=== PATIENT | female | born 1995 | race Caucasian/White ===

== ENCOUNTER 2021-12-28 07:09 | Outpatient (RCR) | payer BC, SELFPAY ==
[2021-12-28 08:50] LABS: Basophils Absolute Auto 0.1 K/mm3 (0.0-0.1); Basophils Percent Auto 0.4 % (0.2-1.2); Eosinophils Absolute Auto 0.2 K/mm3 (0-0.3); Hematocrit 35.4 % (37.0-47.0); Hemoglobin 11.6 g/dL (12.0-15.0); Immature Granulocyte Absolute 0.24 K/mm3 (0.00-0.031); Immature Granulocyte Percent A 1.5 % (0-0.5); Lymphocytes Absolute Auto 1.93 K/mm3 (0.9-3.2); Lymphocytes Percent Auto 12.2 % (18.3-44.2); Mean Corpuscular HGB Conc 32.8 g/dl (32-36); Mean Corpuscular Hemoglobin 30.6 pg (26-34); Mean Corpuscular Volume 93.4 fl (80-100); Mean Platelet Volume 10.1 fl (7.4-10.4); Monocytes Absolute Auto 0.9 K/mm3 (0.1-0.6); Monocytes Percent Auto 5.4 % (2.6-8.5); Neutrophils Absolute Auto 12.6 K/mm3 (1.3-6.7); Neutrophils Percent Auto 79.5 % (45.5-73.1); Platelet Count Result 172 k/mm3 (150-375); Red Blood Count 3.79 M/mm3 (4.2-5.4); Red Cell Distribution Width 13.2 % (11.5-14.5); White Blood Count 15.9 K/mm3 (4.5-10.0)
[2021-12-28 09:06] LABS: Glucose 1 Hour PP 50gm Dose 116 mg/dL
[2021-12-31] MEDS: RHO(D) IMMUNE GLOBULIN 300 MCG/2 ML SYRINGE IM (12:01)
== END 2022-03-28 23:59 | disposition home or self-care (01) ==
LOC: ANHLAB 07:09
PROVIDERS: Visit Provider Obstetrics & Gynecology
DX: O09.92 Supervision of high risk pregnancy, unspecified, second trimester (principal); Z29.13 Encounter for prophylactic Rho(D) immune globulin; O36.0120 Maternal care for anti-D [Rh] antibodies, second trimester, not applicable or unspecified; Z3A.00 Weeks of gestation of pregnancy not specified
CPT/HCPCS: 36415; 82947; 85025; 85461; 90384; 96372; J2790

== ENCOUNTER 2021-12-31 11:46 | Outpatient (CLI) | payer BC, SELFPAY ==
[2021-12-31] MEDS: TETANUS,DIPHTHERIA,AC PERTUSSIS ADULT (0.5 ML) BOOSTRIX IM (12:08)
== END 2021-12-31 11:47 | disposition home or self-care (01) ==
PROVIDERS: Visit Provider Obstetrics & Gynecology
DX: Z23 Encounter for immunization (principal)
CPT/HCPCS: 90471; 90715

== ENCOUNTER 2023-06-14 13:02 | Outpatient (CLI) | payer BC, SELFPAY ==
--- NOTE | ~2023-06-14 | US_ITS ---
EXAMINATION: US OB <=14 wk fetus w TV DATE: 06/14/2023 14:03 INDICATION: Indeterminate with amenorrhea and positive test. TECHNIQUE: Real-time pelvic ultrasound utilizing both a transvaginal and transabdominal probe was pe rformed. The interpreting radiologist was not present for the study. COMPARISON: None. FINDINGS: The uterus measures 10.5 x 5.5 x 7.3 cm. There is an intrauterine gestational sac. A yolk sac and fe mukesh pole are identified. The crown rump length measures 1.6 cm, which correlates with an estimated ge stational age of 8 weeks and 6 days. heart motion is identified measuring 153 beats per minute (bpm) by M-mode Doppler. There is a small amount of anechoic fluid along a portion of the gestational sac measuring 1.3 x 0.6 x 0.4 cm at the left side of the fundus and 1.6 x 1.4 x 0.6 cm extending cau dally into the lower uterine segment. On cine imaging these appear to be communicating and located wi thin the endometrial canal rather than representing subchorionic hematomas. Also on the cine images t he gestational sac is positioned eccentrically at the right side of the fundus with thinning of the e ndo-myometrium (MELITA) from the serosal surface of the uterus to the peripheral margin of the gestation al sac which posteriorly on the transverse cine images measures 2-3 mm which is concerning for an int erstitial ectopic . Cervical length measures 4.7 cm which is normal. The right ovary measures 3.5 x 2.4 x 3.0 cm. 3.1 x 1.4 cm thick-walled centrally anechoic corpus lute um cyst in the right ovary. The left ovary measures 2.8 x 1.1 x 1.9 cm. There is minimal amount of an echoic free fluid in the cul-de-sac. IMPRESSION: 1. Single living fetus with heart rate of 153 bpm. 2. Gestational age by ultrasound of 8 weeks 0 day(s) +/- 5 day(s) with ultrasound estimated date of delivery (MERVIN) of 01/24/2024. 3. Eccentric position of the gestational sac at the right side of the fundus with decreased MELITA dista nce of 2-3 mm raising concern for an interstitial ectopic . Dr. Mack discussed these fin dings with Dr. Underwood the covering physician for Dr. Jones at 4:45 PM. Reviewed, dictated and finalized at location A. [facility] IMPRESSION: 1. Single living fetus with heart rate of 153 bpm. 2. Gestational age by ultrasound of 8 weeks 0 day(s) +/- 5 day(s) with ultraso und estimated date of delivery (MERVIN) of 01/24/2024. 3. Eccentric position of the gestational sac at the right side of the fundus wi th decreased MELITA distance of 2-3 mm raising concern for an interstitial ectopic . Dr. Mack discussed these findings with Dr. Underwood the covering physician for Dr. Jones at 4:45 PM.
== END 2023-06-14 13:03 | disposition home or self-care (01) ==
PROVIDERS: PCP Family Medicine Sports Medicine; Visit Provider Obstetrics & Gynecology
DX: N91.2 Amenorrhea, unspecified (principal)
CPT/HCPCS: 76801; 76817

== ENCOUNTER 2023-09-29 10:11 | Outpatient (CLI) | payer BC, SELFPAY | END 2023-09-29 10:12 | disposition home or self-care (01) | PROVIDERS: PCP Family Medicine Sports Medicine; Visit Provider Obstetrics & Gynecology | DX: B08.3 Erythema infectiosum [fifth disease] (principal) | CPT/HCPCS: 36415; 86747 ==

== ENCOUNTER 2023-10-27 08:33 | Outpatient (CLI) | payer BC, SELFPAY ==
[2023-10-27 09:54] LABS: Hematocrit 36.1 % (37.0-47.0); Hemoglobin 12.3 g/dL (12.0-15.0); Mean Corpuscular HGB Conc 34.1 g/dl (32-36); Mean Corpuscular Hemoglobin 30.4 pg (26-34); Mean Corpuscular Volume 89.4 fl (80-100); Mean Platelet Volume 10.3 fl (7.4-10.4); Platelet Count Result 182 k/mm3 (150-375); Red Blood Count 4.04 M/mm3 (4.2-5.4); White Blood Count 11.4 K/mm3 (4.5-10.0)
[2023-10-27 10:06] LABS: Glucose 1 Hour PP 50gm Dose 88 mg/dL
[2023-10-28] MEDS: RHO(D) IMMUNE GLOBULIN 300 MCG/2 ML SYRINGE IM (15:38)
== END 2023-10-27 08:34 | disposition home or self-care (01) ==
LOC: ANHLAB 08:35
PROVIDERS: Obstetrics & Gynecology; PCP Family Medicine Sports Medicine; Visit Provider Nurse Practitioner Family
DX: Z34.90 Encounter for supervision of normal pregnancy, unspecified, unspecified trimester (principal); B08.3 Erythema infectiosum [fifth disease]
CPT/HCPCS: 36415; 82947; 85027; 85461; 86747; 86850; 86900; 86901; 90384; 96372; J2790

== ENCOUNTER 2023-12-19 07:15 | Outpatient (CLI) | payer BC, SELFPAY ==
[2023-12-19 08:05] LABS: Hematocrit 37.1 % (37.0-47.0); Hemoglobin 12.6 g/dL (12.0-15.0); Mean Corpuscular Hemoglobin 30.1 pg (26-34); Mean Corpuscular Volume 88.5 fl (80-100); Mean Platelet Volume 10.8 fl (7.4-10.4); Platelet Count Result 159 k/mm3 (150-375); Red Blood Count 4.19 M/mm3 (4.2-5.4); Red Cell Distribution Width 12.7 % (11.5-14.5); White Blood Count 8.8 K/mm3 (4.5-10.0)
[2023-12-19 10:31] LABS: HIV 1/2 Ab P24 Ag Result Negative (Negative)
[2023-12-19 14:00] LABS: Rapid Plasma Reagin Non-Reactive (NonReactive)
[2023-12-27 14:10] VITALS: BP 109/67; PULSE 62
== END 2023-12-19 07:16 | disposition home or self-care (01) ==
LOC: ANHLAB 07:17
PROVIDERS: PCP Family Medicine Sports Medicine; Visit Provider Obstetrics & Gynecology
DX: Z34.90 Encounter for supervision of normal pregnancy, unspecified, unspecified trimester (principal)
CPT/HCPCS: 36415; 85027; 86592; 86703; G0432

== ENCOUNTER 2023-12-27 13:29 | Outpatient (RCR) | payer BC, SELFPAY | END 2024-03-26 23:59 | disposition home or self-care (01) | LOC: ANHOBOP 13:29 | PROVIDERS: PCP Family Medicine Sports Medicine; Visit Provider Obstetrics & Gynecology | DX: O09.893 Supervision of other high risk pregnancies, third trimester (principal); Z95.0 Presence of cardiac pacemaker; Z3A.00 Weeks of gestation of pregnancy not specified | CPT/HCPCS: 59025 ==